=== PATIENT | male | born 1985 | race Caucasian/White ===

== ENCOUNTER 2018-01-05 12:11 | Emergency (ER) | payer SELFPAY ==
[2018-01-05] MEDS ORDERED: ALBUTEROL/IPRATROPIUM 1 VIAL SOL INH ONE (13:09)
[2018-01-05 13:11] VITALS: RESP 20; TEMP 98.7
[2018-01-05 13:35] LABS: BASOPHILS % (AUTO) 1 % (0-3); EOSINOPHILS % (AUTO) 1 % (0-9); HEMATOCRIT 43 % (39-53); HEMOGLOBIN 14.5 gm/dl (13.5-17.7); LYMPHOCYTES % (AUTO) 21.2 % (10-50); MEAN CORPUSCULAR HEMOGLOBIN 29.5 pg (27.0-32.0); MEAN CORPUSCULAR HGB CONC 33.8 gm/dl (32.0-36.0); MEAN CORPUSCULAR VOLUME 87 fL (80-100); MONOCYTES % (AUTO) 6.6 % (0-12); NEUTROPHILS % (AUTO) 70.4 % (37-80)
[2018-01-05 14:02] VITALS: PULSE 86
[2018-01-05 14:21] VITALS: BP 141/85
[2018-01-05 14:37] VITALS: O2SAT 100
== END 2018-01-05 14:40 | disposition home or self-care (01) | DRG 206 ==
LOC: ED 12:11
DX: S22.32XA Fracture of one rib, left side, initial encounter for closed fracture (principal)
CPT/HCPCS: 36415; 71101; 85025; 99283